=== PATIENT | female | born 1970 | race African-American/Black ===

== ENCOUNTER 2017-01-18 19:13 | Emergency (ER) | payer BC ==
[2017-01-18 16:47] LABS: BASOPHILS 0.2 %; BASOPHILS ABSOLUTE 0.03 10/3/uL (0.0-0.16); EOSINOPHILS 2.8 %; EOSINOPHILS ABSOLUTE 0.52 10/3/uL (0.0-0.53); HEMATOCRIT 39.7 % (36.0-48.0); HEMOGLOBIN 13.7 g/dL (12.0-16.0); IMMATURE GRANULOCYTES 0.3 %; IMMATURE GRANULOCYTES ABSOLUTE 0.06 10/3/uL (0.0-0.11); LYMPHOCYTES 11.7 %; LYMPHOCYTES ABSOLUTE 2.14 10/3/uL (0.67-4.30); MEAN CORPUS HGB CONC 34.5 g/dL (32.0-36.0); MEAN CORPUSCULAR HEMOGLOB 30.4 pg (26.0-34.0); MEAN PLATELET VOLUME 9.5 fL (9.2-13.0); MONOCYTES 6.3 %; MONOCYTES ABSOLUTE 1.15 10/3/uL (0.21-1.20); NEUTROPHILS 78.7 %; NEUTROPHILS ABSOLUTE 14.45 10/3/uL (2.02-8.40); PLATELET COUNT 434 10/3/uL (150-400); RBC DISTRIBUTION WIDTH 14.1 % (12.0-16.0); RED CELL COUNT 4.51 10/6/uL (4.0-5.6)
[2017-01-18 16:49] LABS: MANUAL DIFF NO %; WHITE BLOOD CELLS 18.4 10/3/uL (4.5-10.5)
[2017-01-18 16:55] LABS: PARTIAL THROMBO TIME 30.3 SEC (22.5-37.2); PROTIME (NOT ORD) 13.3 SEC (12.0-14.5)
[2017-01-18 17:04] LABS: BUN (BLOOD UREA NITROGEN) 20 MG/DL (6-23); CALCIUM, SERUM 9.3 MG/DL (8.5-10.4); CHEST PAIN PROFILE TAT 0 Hrs 21 Mins; CHLORIDE, SERUM 102 MMOL/L (96-112); CO2 (CARBON DIOXIDE) 28 MMOL/L (24-34); CREATININE 0.97 MG/DL (0.55-1.02); GFR AFRICAN AMERICAN 81 ML/MIN (>=60); GFR NON AFRICAN AMERICAN 70 ML/MIN (>=60); GLUCOSE, SERUM 180 MG/DL (60-99); POTASSIUM, SERUM 3.7 MMOL/L (3.5-5.3); SODIUM, SERUM 137 MMOL/L (135-148); TROPONIN I <0.02 NG/ML (<0.05)
[~2017-01-18 19:13] MED LIST: ACETSUP650 PR; ALOE VERA PO; BYSTOLIC10 MG PO; CAT2 PO; COMP10B PO; COREG12 PO; COREG25 PO; COZAAR100 MG PO; DIABETA5 PO; ENDOCET1 TAB PO; FLAG500TAB PO; HARD NAILS OR; KAPIDEX60 MG PO; KLOR-CON M15 PO; KLOR-CON M2020 MEQ PO; LORT7 PO; LORTAB10 PO; MAGOX4 PO; NATTOKINASE PO; NIACIN PO; NORV10 PO; SPIRO25 PO; ULTRAM50 PO; ZOFRAN4 PO; [UNRECOGNIZED DRUG - CODE] PO; [UNRECOGNIZED DRUG - OTHER] OR; [UNRECOGNIZED DRUG - OTHER] PO; [UNRECOGNIZED DRUG - OTHER] PO
== END 2017-01-18 21:47 | disposition home or self-care (01) ==
LOC: ER 19:13
PROVIDERS: Emergency Medicine
DX: M79.601 Pain in right arm (principal); I10 Essential (primary) hypertension; J45.909 Unspecified asthma, uncomplicated; E11.9 Type 2 diabetes mellitus without complications; Z90.710 Acquired absence of both cervix and uterus; Z88.2 Allergy status to sulfonamides; Z88.6 Allergy status to analgesic agent; Z88.1 Allergy status to other antibiotic agents; Z88.8 Allergy status to other drugs, medicaments and biological substances; Z91.09 Other allergy status, other than to drugs and biological substances; Z79.899 Other long term (current) drug therapy
CPT/HCPCS: 71020; 80048; 83735; 84484; 85025; 85610; 85730; 93005; 96372; 99285; A9270-GY; J1170; J1200; J2930

== ENCOUNTER 2017-02-01 02:15 | Inpatient (IN) | payer BC ==
--- NOTE | ~2017-02-01 | HP ---
History And Physical [place] [id number] [facility] [place]. [address] NAME: BREANNA PHILLIP : 68 STATUS : ADM [facility] [id number] AGE: 46 ADM/REG DATE : 02/01/17 MR#: [id number] REPORT SERV DATE: 02/01/17 DICTATED BY: CHAPITO RITTER DATE: 02/01/17 REPORT STATUS : Draft TRANSCRIBED BY: MODL DATE: 02/01/17 DATE OF ADMISSION: 02/01/2017 HISTORY OF PRESENT ILLNESS: A 46-year-old female, came to the emergency room because of possible allergic reaction. She states that, she has multiple medical allergies [id number] list on this dictation. She apparently was exposed to some pesticides and she states that she broke out in a rash. She started getting short of breath and she was itchy all over. She took her hydroxyzine at home without much relief and so came to the ER. She was very hypertensive with blood pressure well over 200 systolic. She is on clonidine 0.3 mg by mouth three times a day normally. She states that she takes 0.4 mg three times a day during the pesticide season. She is allergic to multiple medicines including blood pressure medicines. She states "lisinopril about killed her". She states that Procardia gave her suicidal thoughts and amlodipine also made her swell up. When she also had a headache when her blood pressure was high, but this has resolved, and she is no longer short of breath. She denies any current chest pain or shortness of breath or abdominal pain. She is currently on a Cardene drip and was sent to the ICU for us to admit. REVIEW OF SYSTEMS: No fevers, chills, or sweats. No nausea, vomiting, diarrhea, or leg swelling. PAST MEDICAL HISTORY: Hypertension, multiple allergies, diabetes. PAST SURGICAL HISTORY: Partial hysterectomy. ALLERGIES: SEE LIST. HOME MEDICATIONS: Reviewed. SOCIAL HISTORY: No tobacco. Occasional wine. No illicit drugs. FAMILY HISTORY: No hypertension problems in her family. PHYSICAL EXAMINATION: Vital SIGNS: Per nursing flow sheet. GENERAL: No acute distress. Alert. HEENT: Normocephalic, atraumatic. NECK: Trachea midline. No palpable masses. HEART: Tachycardic but regular, but no murmurs. LUNGS: Clear to auscultation bilaterally. GI: Soft, nontender, nondistended. EXTREMITIES: No edema, cyanosis, or clubbing. SKIN: No obvious rash. LABORATORY DATA: Reviewed. ASSESSMENT/PLAN: History And Physical [address] [place]. [address] NAME: BREANNA PHILLIP : 68 STATUS : ADM IN [facility]#: [id number] AGE: 46 ADM/REG DATE : 02/01/17 MR#: [id number] REPORT SERV DATE: 02/01/17 DICTATED BY: CHAPITO RITTER DATE: 02/01/17 REPORT STATUS : Draft TRANSCRIBED BY: MODL DATE: 02/01/17 1. Hypertensive urgency. 2. Multiple allergies - not clear at this point, if all of these reported allergies are actually real. 3. Pruritus. 4. Indeterminate troponin. 5. Leukocytosis. The patient is currently on a Cardene drip. We will put the patient back on her home dose of clonidine and monitor. We will check troponins with cycling them. Also, check TSH, liver profile, hemoglobin A1c, and urinalysis. CEP/MODL Chapito Ritter DO / [id number] CC: MD Bennie Rothman Jr., M.D.
--- NOTE | ~2017-02-01 | DS ---
Discharge Summary [place] [address] [facility] [place]. [address] NAME: BREANNA PHILLIP : 68 STATUS : DIS IN PAT#: [id number] AGE: 46 ADM/REG DATE : 02/01/17 MR#: [id number] REPORT SERV DATE: 02/05/17 DICTATED BY: DATE: REPORT STATUS : Draft TRANSCRIBED BY: MODL DATE: 02/04/17 ADMISSION DATE: 02/01/2017 DISCHARGE DATE: 02/04/2017 The patient was admitted to the Medical Dermatologist Service, Dr. Nabeel Collazo, discharged from the Hospitalist Service, Dr. Richi Villalba. DISCHARGE DIAGNOSES: 1. Hypertensive urgency. 2. History of medical noncompliance. 3. Reported history of multiple drug intolerances, making treatment of medical conditions difficult. 4. Insulin-dependent diabetes mellitus type 2-uncontrolled. Hemoglobin A1c 8.6. Noncompliant with diabetic diet. 5. Possible allergic reaction. 6. Generalized anxiety disorder. 7. Dyslipidemia. 8. Demand related ischemia. IMAGIN. Portable chest x-ray 02/01/2017 for dyspnea shows cardiomegaly, but clear lungs. 2. Echocardiogram 02/03/2017 for dyspnea shows left ventricular hypertrophy unchanged from prior. Mild diastolic dysfunction of the left ventricle. PERTINENT LABS: Basic metabolic panel throughout admission was normal with the exception of blood glucose values ranging from 200 to 300. Total cholesterol 258, HDL 58, LDL 175, triglycerides 125. Random cortisol was 22. Admission troponin 0.12, 0.06 at discharge. TSH 0.844, free T4 of 1.27, hemoglobin A1c 8.6, random cortisol 22.7. White blood cell count ranging from 13.5 to 18.4, on steroids; hemoglobin 13.6; platelets 425. INR 1.0. Urinalysis negative. BRIEF HISTORY: For full details, please see the previously dictated history of present illness by Dr. Chapito Ritter. This is a 46-year-old female, presenting to the emergency department for possible allergic reaction. She reports multiple medical allergies-too numerous to list in dictations, with allergy list of at least 25 medications, multiple dyes, multiple foods, pesticides, outpatient chemicals. For this, she follows with Dr. Cherri Parsons. The patient apparently was exposed to pesticides and states that she broke out in a rash, was becoming short of breath, and itchy all over. She took Atarax at home without much relief and came to the emergency department. There, she was not observed to have any signs or symptoms consistent with a true allergic reaction, but was observed to be hypertensive with blood pressure over 200 systolic. She was placed on a Cardene drip and sent to the intensive care unit for further management. Of note, she had no symptoms related to a systolic of greater than 200. HOSPITAL COURSE: For full details of ICU hospitalization, please review progress notes from Critical Care Medicine. Essentially, the patient was transitioned off her Cardene drip upon Discharge Summary [address] [place]. [address] NAME: BREANNA PHILLIP : 68 STATUS : DIS IN PAT#: [id number] AGE: 46 ADM/REG DATE : 02/01/17 MR#: [id number] REPORT SERV DATE: 02/05/17 DICTATED BY: DATE: REPORT STATUS : Draft TRANSCRIBED BY: MODL DATE: 02/04/17 arrival to the intensive care unit and managed with her home dose of clonidine which is 0.3 mg four times a day. She cites allergies to essentially all other medications, although of note, did tolerate Cardene infusion with no difficulty. Also, on prior hospitalizations, has tolerated carvedilol, losartan, and hydralazine. However, she refused to take any of these medications at home and instead would only take her home supply of clonidine, because it was dye-free. Her blood pressure systolic ranged from 140 to 200 during the admission, with diastolic values 75 to 115. Suspect this is close to the patient's baseline, and that further reductions should not be made in a rapid fashion for the patient as she is currently asymptomatic with no headache, vision changes, chest pain or shortness of breath, and no lab evidence of end-organ damage from her elevated blood pressure. She does have evidence of some chronic left ventricular hypertrophy, unchanged from prior, likely related to longstanding poor blood pressure control and medical noncompliance. For management of the possible allergic reaction, again there were no physical signs or symptoms to suggest the true allergic component to her symptoms. 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 For anxiety, the patient wanted to be started on a higher dose of Atarax. This was increased during the admission and she also requested a trial of Ativan. She was counseled on the side effects of Ativan to include early dementia and addiction and elected to take this medication. The patient also monitored cortisol level checked this admission because she stated "my adrenals have always been out of whack." Random value was 22 and she has received steroids recently, which indicate she may have some degree of adrenal insufficiency that needs to be explored further in the outpatient setting. DISCHARGE DISPOSITION: The patient was felt fit for discharge home on the 02/04/2017. Again, her blood pressure control is not optimal, but I believe this is close to her baseline and she is asymptomatic from this. Her multiple drug allergies limits my ability to treat her blood pressure effectively and this was discussed with her at length. She has a followup appointment pending with Dr. Monroe. She has an appointment with Dr. Parsons pending for 02/28/2017 and were calling the office to see if it can be moved up sooner. The patient needs to follow up with her primary care provider in 7 to 14 days-this is Dr. Bennie Castro, for additional blood pressure followup. She is being discharged to home on her clonidine as well as oral nicardipine since she demonstrated no intolerance to a Cardene drip while here in the hospital. Discharge Summary [place] [address] [facility] [place]. [address] NAME: BREANNA PHILLIP : 68 STATUS : DIS IN PAT#: [id number] AGE: 46 ADM/REG DATE : 02/01/17 MR#: [id number] REPORT SERV DATE: 02/05/17 DICTATED BY: DATE: REPORT STATUS : Draft TRANSCRIBED BY: MODL DATE: 02/04/17 She is also given a dose of Solu-Medrol prior to discharge and a prescription for Medrol Dosepak to take, as well as to resume her typical allergy medicines including Zyrtec, Pepcid, and Atarax. DISCHARGE MEDICATIONS: 1. Coenzyme Q10 of 200 mg p.o. twice a day. 2. Ativan 0.5 mg p.o. twice a day as needed-30 tablets dispensed with no refills. 3. Clonidine 0.3 mg p.o. four times a day. 4. Potassium chloride 20 mEq p.o. four times a day. 5. Glyburide 5 mg p.o. twice a day. 6. Humalog sliding scale subcu before each meals and at bedtime. 7. Zyrtec 10 mg p.o. daily. 8. Pepcid AC 1 tablet p.o. b.i.d. 9. Medrol Dosepak-1 dispensed, take as directed. 10.Nicardipine 20 mg p.o. t.i.d. 40 minutes was spent in completion of the discharge summary. DICTATED BY: Jhoana Gibson/AZUL Richi Villalba M.D. / [id number] CC: Jhoana Gibson Jr., M.D. Michael Geer, M.D. Susan Raschal, D.O.
[2017-02-01 03:11] LABS: BASOPHILS 0.2 %; BASOPHILS ABSOLUTE 0.04 10/3/uL (0.0-0.16); EOSINOPHILS 2.1 %; EOSINOPHILS ABSOLUTE 0.35 10/3/uL (0.0-0.53); ER CBC TAT 0 Hrs 03 Mins; HEMATOCRIT 39.4 % (36.0-48.0); HEMOGLOBIN 13.1 g/dL (12.0-16.0); IMMATURE GRANULOCYTES 0.2 %; IMMATURE GRANULOCYTES ABSOLUTE 0.04 10/3/uL (0.0-0.11); LYMPHOCYTES 12.6 %; LYMPHOCYTES ABSOLUTE 2.12 10/3/uL (0.67-4.30); MEAN CORPUS HGB CONC 33.2 g/dL (32.0-36.0); MEAN CORPUSCULAR HEMOGLOB 29.6 pg (26.0-34.0); MEAN CORPUSCULAR VOLUME 89.1 fL (80-100); MEAN PLATELET VOLUME 9.6 fL (9.2-13.0); MONOCYTES 3.6 %; NEUTROPHILS 81.3 %; NEUTROPHILS ABSOLUTE 13.63 10/3/uL (2.02-8.40); PLATELET COUNT 450 10/3/uL (150-400); RBC DISTRIBUTION WIDTH 13.8 % (12.0-16.0); RED CELL COUNT 4.42 10/6/uL (4.0-5.6); WHITE BLOOD CELLS 16.8 10/3/uL (4.5-10.5)
[2017-02-01 03:12] LABS: MANUAL DIFF NO %
[2017-02-01 03:20] LABS: PARTIAL THROMBO TIME 31.5 SEC (22.5-37.2); PROTIME (NOT ORD) 13.5 SEC (12.0-14.5)
[2017-02-01 03:28] LABS: CALCIUM, SERUM 9.4 MG/DL (8.5-10.4); CHLORIDE, SERUM 103 MMOL/L (96-112); CO2 (CARBON DIOXIDE) 29 MMOL/L (24-34); GFR AFRICAN AMERICAN 120 ML/MIN (>=60); GFR NON AFRICAN AMERICAN 103 ML/MIN (>=60); POTASSIUM, SERUM 3.7 MMOL/L (3.5-5.3); SODIUM, SERUM 140 MMOL/L (135-148)
[2017-02-01 03:29] LABS: BUN (BLOOD UREA NITROGEN) 14 MG/DL (6-23); CHEST PAIN PROFILE TAT 0 Hrs 21 Mins; GLUCOSE, SERUM 239 MG/DL (60-99); TROPONIN I 0.12 NG/ML (<0.05)
[2017-02-01] MEDS ORDERED: CO Q-10200 MG PO (10:12)
[2017-02-01] MEDS ORDERED: HUMALOG SC (10:13)
[2017-02-01] MEDS ORDERED: AT25 PO (10:15)
[2017-02-01 11:54] LABS: FREE T4 1.27 NG/DL (0.76-1.46)
[2017-02-01 11:55] LABS: CHOL/HDL RATIO(NOT ORDER) 4.4 (0-5); TROPONIN I 0.06 NG/ML (<0.05); ULTRASENSITIVE TSH 0.844 MCIU/ML (0.358-3.740)
[2017-02-01 12:57] LABS: WBC (NOT ORDERED) (RFLEX) 0 (0-5)
[2017-02-01 13:13] LABS: ASCORBIC ACID (UR NOT ORDER) NEG (NEG); BILIRUBIN, URINE NEGATIVE (NEG); KETONE, URINE NEGATIVE (NEG); LEUKOCYTE ESTERASE(NOT OR NEG (NEG)
[2017-02-02 04:41] LABS: BASOPHILS 0.1 %; BASOPHILS ABSOLUTE 0.02 10/3/uL (0.0-0.16); EOSINOPHILS 2.4 %; EOSINOPHILS ABSOLUTE 0.35 10/3/uL (0.0-0.53); HEMATOCRIT 38.9 % (36.0-48.0); HEMOGLOBIN 12.9 g/dL (12.0-16.0); IMMATURE GRANULOCYTES 0.3 %; IMMATURE GRANULOCYTES ABSOLUTE 0.05 10/3/uL (0.0-0.11); LYMPHOCYTES 17.1 %; LYMPHOCYTES ABSOLUTE 2.47 10/3/uL (0.67-4.30); MEAN CORPUS HGB CONC 33.2 g/dL (32.0-36.0); MEAN CORPUSCULAR HEMOGLOB 29.5 pg (26.0-34.0); MEAN CORPUSCULAR VOLUME 88.8 fL (80-100); MEAN PLATELET VOLUME 9.4 fL (9.2-13.0); MONOCYTES 5.3 %; MONOCYTES ABSOLUTE 0.76 10/3/uL (0.21-1.20); NEUTROPHILS 74.8 %; NEUTROPHILS ABSOLUTE 10.79 10/3/uL (2.02-8.40); PLATELET COUNT 421 10/3/uL (150-400); RBC DISTRIBUTION WIDTH 13.5 % (12.0-16.0); RED CELL COUNT 4.38 10/6/uL (4.0-5.6); WHITE BLOOD CELLS 14.4 10/3/uL (4.5-10.5)
[2017-02-02 04:45] LABS: MANUAL DIFF NO %
[2017-02-02 04:54] LABS: BUN (BLOOD UREA NITROGEN) 13 MG/DL (6-23); CHLORIDE, SERUM 102 MMOL/L (96-112); CO2 (CARBON DIOXIDE) 33 MMOL/L (24-34); CREATININE 0.83 MG/DL (0.55-1.02); GFR AFRICAN AMERICAN 97 ML/MIN (>=60); GFR NON AFRICAN AMERICAN 84 ML/MIN (>=60); GLUCOSE, SERUM 236 MG/DL (60-99); POTASSIUM, SERUM 3.6 MMOL/L (3.5-5.3); SODIUM, SERUM 138 MMOL/L (135-148)
[2017-02-02 04:56] LABS: CALCIUM, SERUM 8.4 MG/DL (8.5-10.4)
[2017-02-03 04:58] LABS: BASOPHILS 0.2 %; BASOPHILS ABSOLUTE 0.03 10/3/uL (0.0-0.16); EOSINOPHILS 3.3 %; EOSINOPHILS ABSOLUTE 0.44 10/3/uL (0.0-0.53); HEMATOCRIT 40.6 % (36.0-48.0); HEMOGLOBIN 13.6 g/dL (12.0-16.0); IMMATURE GRANULOCYTES 0.3 %; IMMATURE GRANULOCYTES ABSOLUTE 0.04 10/3/uL (0.0-0.11); LYMPHOCYTES ABSOLUTE 2.97 10/3/uL (0.67-4.30); MANUAL DIFF NO %; MEAN CORPUS HGB CONC 33.5 g/dL (32.0-36.0); MEAN CORPUSCULAR HEMOGLOB 29.9 pg (26.0-34.0); MEAN CORPUSCULAR VOLUME 89.2 fL (80-100); MEAN PLATELET VOLUME 9.2 fL (9.2-13.0); MONOCYTES 5.2 %; NEUTROPHILS ABSOLUTE 9.34 10/3/uL (2.02-8.40); PLATELET COUNT 425 10/3/uL (150-400); RBC DISTRIBUTION WIDTH 13.6 % (12.0-16.0); RED CELL COUNT 4.55 10/6/uL (4.0-5.6); WHITE BLOOD CELLS 13.5 10/3/uL (4.5-10.5)
[2017-02-03 05:08] LABS: ALBUMIN 3.5 G/DL (3.5-5.0); BUN (BLOOD UREA NITROGEN) 15 MG/DL (6-23); CHLORIDE, SERUM 104 MMOL/L (96-112); CREATININE 0.77 MG/DL (0.55-1.02); GFR AFRICAN AMERICAN 107 ML/MIN (>=60); GFR NON AFRICAN AMERICAN 92 ML/MIN (>=60); GLUCOSE, SERUM 206 MG/DL (60-99); POTASSIUM, SERUM 3.7 MMOL/L (3.5-5.3); SODIUM, SERUM 139 MMOL/L (135-148)
[2017-02-03 05:09] LABS: CO2 (CARBON DIOXIDE) 27 MMOL/L (24-34); PHOSPHORUS, SERUM 2.7 MG/DL (2.5-4.5)
[2017-02-04] MEDS ORDERED: ATV.5 PO (10:36)
[2017-02-04] MEDS ORDERED: ATARAX50B PO (10:40)
[2017-02-04] MEDS ORDERED: ZYRTEC ALLGY10 MG PO (10:44)
[2017-02-04] MEDS ORDERED: MEDROLPAK4 PO (10:44)
[2017-02-04] MEDS ORDERED: [UNRECOGNIZED DRUG - CODE] PO (10:44)
[2017-02-04] MEDS ORDERED: PEP20 PO (10:45)
== END 2017-02-04 15:37 | disposition home or self-care (01) | DRG 305 ==
LOC: ER 02:15 → CCU 05:45 → 7NO 02-02 12:25
PROVIDERS: Internal Medicine Critical Care Medicine; Internal Medicine Pulmonary Disease; Specialist
DX: I16.0 Hypertensive urgency (principal); I24.8 Other forms of acute ischemic heart disease; D72.829 Elevated white blood cell count, unspecified; L29.9 Pruritus, unspecified; E11.65 Type 2 diabetes mellitus with hyperglycemia; Z91.11 Patient's noncompliance with dietary regimen; F41.1 Generalized anxiety disorder; E78.5 Hyperlipidemia, unspecified; Z79.84 Long term (current) use of oral hypoglycemic drugs; Z79.4 Long term (current) use of insulin; Z88.8 Allergy status to other drugs, medicaments and biological substances; Z88.6 Allergy status to analgesic agent; Z88.4 Allergy status to anesthetic agent; Z88.1 Allergy status to other antibiotic agents; Z88.3 Allergy status to other anti-infective agents; Z88.2 Allergy status to sulfonamides
CPT/HCPCS: 71010; 80048; 80061; 80069; 81001; 82533; 82962; 83036; 83735; 84439; 84443; 84484; 85025; 85610; 85730; 87641; 93005; 93306; 96374; 99291; A9270-GY; J1200; J2930